=== PATIENT | female | born 2000 | race Caucasian/White ===

== ENCOUNTER 2021-09-09 19:47 | Inpatient (IN) ==
[~2021-09-09 19:47] MED LIST: *HR* Nalbuphine 10 MG/ML AMPUL IV PRN; Ampicillin 2,000 MG in 0.9 % Sodium Chloride Mini Bag 100 ML IVPB STA; Betamethasone Acet/SodPhos 30 MG/5 ML VIAL IM STA; Famotidine 20 MG/2 ML VIAL IVP PRN; Metoclopramide 10 MG/2 ML VIAL IVP PRN; Naloxone 0.4 MG/ML INJ IVP PRN; Ringers Solution, Lactated 1,000 ML IVC SCH
[2021-09-09] MEDS ORDERED: Azithromycin 500 MG in 0.9 % Sodium Chloride 250 ML IVPB ONE (19:52)
[2021-09-09 20:06] LABS: Amphetamine Screen,Urine Negative ng/mL (Cutoff=1000); Barbiturate Screen,Urine Negative ng/mL (Cutoff=200); Benzodiazepines Screen,Urine Negative ng/mL (Cutoff=200); Cannabinoid Screen,Urine Positive ng/mL (Cutoff = 50); Cocaine Screen,Urine Negative ng/mL (Cutoff= 300); Opiate Screen,Urine Negative ng/mL (Cutoff=300); Phencyclidine Screen,Urine Negative ng/mL (Cutoff=25)
[2021-09-09 20:12] LABS: Hematocrit 34.1 % (35.3-44.9); Hemoglobin 11.9 g/dL (11.5-15.4); Immature Granulocytes % 1.1 % (0-4); Lymphocytes % 18.7 %; Mean Corpuscular HGB Conc 34.9 g/dL (31.6-35.5); Mean Corpuscular Hemoglobin 33.1 pg (28.0-33.3); Mean Corpuscular Volume 94.7 fL (83.0-100.0); Mean Platelet Volume 11.6 fL (9.4-12.4); Platelet Count 167 K/mcL (140-400); Red Cell Distribution Width 12.4 % (11.5-14.5); Segmented Neutrophils % 68.1 %; White Blood Count 12.3 K/mcL (4.3-11.1)
[2021-09-09 20:13] LABS: Basophils % 0.3 %; Eosinophils # 0.3 K/mcL (0.0-0.6); Eosinophils % 2.1 %; Lymphocytes # 2.3 K/mcL (0.6-4.6); Monocytes # 1.2 K/mcL (0.0-1.3); Monocytes % 9.7 %; Neutrophils # 8.4 K/mcL (1.6-8.9)
[2021-09-09 20:25] LABS: INR 0.9; Prothrombin Time 10.3 Seconds (9.4-12.1)
[2021-09-09 20:27] LABS: Activated Partial Thrombo Time 27.7 Seconds (26.0-36.0)
[2021-09-09 20:32] LABS: Influenza A PCR Negative (Negative); Influenza B PCR Negative (Negative); Resp. Syncytial Virus PCR Negative (Negative); SARS-CoV-2 by PCR (In House) Negative (Negative)
[2021-09-09] MEDS ORDERED: Ampicillin 1,000 MG in 0.9 % Sodium Chloride Mini Bag 100 ML IVPB SCH (23:15)
== END 2021-09-09 20:55 | disposition short-term general hospital (02) | DRG 566 ==
LOC: 1NENULAB
PROVIDERS: ADMIT Obstetrics & Gynecology; ATTEND Obstetrics & Gynecology